=== PATIENT | female | born 1980 | race Caucasian/White ===

== ENCOUNTER 2020-04-26 15:01 | Outpatient (CLI) | payer OTHER, SELFPAY ==
[2020-04-26 15:44] LABS: SARS-CoV-2 Ag Negative (Negative)
[2020-04-27 17:28] LABS: SARS-CoV-2 RNA PCR Negative
== END 2020-04-26 15:02 | disposition home or self-care (01) ==
PROVIDERS: PCP Nurse Practitioner Family; Visit Provider Nurse Practitioner Family
DX: R05 Cough (principal); R52 Pain, unspecified; Z20.822 Contact with and (suspected) exposure to COVID-19
CPT/HCPCS: 87426; C9803; U0003; U0005

== ENCOUNTER 2020-05-18 09:27 | Outpatient (CLI) | payer OTHER, SELFPAY ==
--- NOTE | ~2020-05-18 | CT_ITS ---
EXAMINATION: CT brain wo con DATE: 05/18/2020 09:59 INDICATION: Head injury. Loss of consciousness. TECHNIQUE: Computed tomography (CT) of the head was performed without intravenous contrast. The mA wa s adjusted according to patient size. Iterative reconstruction technique was employed. The dose-lengt h product was 605.33 mGy-cm. COMPARISON: None FINDINGS: There is no intracranial hemorrhage, acute infarction, or abnormal intracranial mass lesion . The ventricles are normal in size. Cavum septum callosum and vergae are noted. The paranasal sinuse s are clear. The orbits are normal. The mastoid air cells are normal. IMPRESSION: 1. Normal brain. Reviewed, dictated and finalized at location A. [facility] HISTORY PROFESSOR IMPRESSION: 1. Normal brain.
== END 2020-05-18 09:28 | disposition home or self-care (01) ==
LOC: CHSIMG 09:31
PROVIDERS: PCP Nurse Practitioner Family; Visit Provider Nurse Practitioner Family
DX: S06.9X9A Unspecified intracranial injury with loss of consciousness of unspecified duration, initial encounter (principal); H53.8 Other visual disturbances
CPT/HCPCS: 70450

== ENCOUNTER 2020-07-06 11:19 | Outpatient (CLI) | payer OTHER, SELFPAY ==
[2020-07-06 12:16] LABS: SARS-CoV-2 RNA PCR Negative (Negative)
== END 2020-07-06 11:20 | disposition home or self-care (01) ==
PROVIDERS: PCP Nurse Practitioner Family; Visit Provider Nurse Practitioner Family
DX: R09.81 Nasal congestion (principal); R50.9 Fever, unspecified
CPT/HCPCS: C9803; U0003; U0005

== ENCOUNTER 2020-11-22 13:29 | Outpatient (CLI) | payer OTHER, SELFPAY ==
[2020-11-22] MEDS: ACETAMINOPHEN 325 MG TABLET 650 MG PO (13:51)
[2020-11-22] MEDS: FAMOTIDINE 20 MG TABLET PO (13:51)
[2020-11-22] MEDS: diphenhydrAMINE HCl CAP 25 MG CAPSULE PO (13:51)
[2020-11-22 13:53] VITALS: BMI 30.4
[2020-11-22 13:54] VITALS: BP 102/59; PULSE 76; RESP 16; TEMP 37.2; O2SAT 97
[2020-11-22 14:50] VITALS: BP 106/56; PULSE 72; RESP 14; O2SAT 96
--- NOTE | 2020-11-22 14:51 | PC.NURSE ---
Patient here for Casirivimab and imdevimab infusion r/t + for covid and meeting criteria. Has Non productive cough and headache. Denies shortness of breat. Medication education given. Permit signed. No concerns voiced at this time. PO premeds and infusion Casirivimab and Imdevimab IV administered. SEE MAR. Tolerated well. Observe for sometime after infusion. No s/sx of reaction noted or reported. Safe exit of hospital.
== END 2020-11-22 13:30 | disposition home or self-care (01) ==
LOC: CHSTREATRM 13:31
PROVIDERS: PCP Nurse Practitioner Family; Visit Provider Nurse Practitioner Family
DX: Z23 Encounter for immunization (principal); U07.1 COVID-19
CPT/HCPCS: A9270; M0243

== ENCOUNTER 2021-04-12 15:30 | Outpatient (CLI) | payer OTHER, SELFPAY ==
[2021-04-12 16:10] LABS: SARS-CoV-2 Ag Negative (Negative)
== END 2021-04-12 15:31 | disposition home or self-care (01) ==
LOC: CHSLAB 15:33
PROVIDERS: PCP Nurse Practitioner Family; Visit Provider Nurse Practitioner Family
DX: Z20.822 Contact with and (suspected) exposure to COVID-19 (principal)
CPT/HCPCS: 87426; C9803